=== PATIENT | male | born 1985 | race African-American/Black ===

== ENCOUNTER 2018-05-27 06:32 | Day surgery (SDC) | payer OTHER | END 2018-05-27 06:55 | disposition DCI. | DRG 395 | LOC: ORM 06:32 | PROVIDERS: ATTEND Surgery | DX: K40.90 Unilateral inguinal hernia, without obstruction or gangrene, not specified as recurrent (principal); Z53.8 Procedure and treatment not carried out for other reasons ==

== ENCOUNTER 2018-07-22 06:16 | Day surgery (SDC) | payer OTHER ==
[~2018-07-22] VITALS: Ht 170.2 cm; Wt 71.2 kg
[2018-07-22 08:04] LABS: HEMATOCRIT 38.4 % (39.0-50.0); HEMOGLOBIN 13.2 g/dl (14.0-18.0); IMMATURE GRANULOCYTES 0.3 % (0.0-5.0); MEAN CELL VOLUME 90.8 fL CALC (80.0-100.0); MEAN CORPUSCULAR HGB 31.2 pG CALC (26.0-32.0); MEAN CORPUSCULAR HGB CONC 34.4 g/L CALC (32.0-36.0); NEUT# 1.78 thou/uL (1.82-7.42); RED BLOOD COUNT 4.23 mill/uL (4.70-6.10); RED CELL DISTRI WIDTH 12.9 % (11.5-15.5)
[2018-07-22 11:01] VITALS: BP 121/72
== END 2018-07-22 11:28 | disposition home or self-care (01) | DRG 352 ==
LOC: ORM 06:16
PROVIDERS: ATTEND Surgery
PROC: 0YU50JZ Supplement Right Inguinal Region with Synthetic Substitute, Open Approach (ICD-10-PCS; principal; 2018-07-22)
DX: K40.90 Unilateral inguinal hernia, without obstruction or gangrene, not specified as recurrent (principal)
CPT/HCPCS: C9290